=== PATIENT | male | born 1945 | race Asian ===

== ENCOUNTER → 2024-10-26 | Outpatient (BNVA) | payer MEDICARE, MEDICAID, SELFPAY | END | disposition home or self-care (01) | PROVIDERS: PCP Physician Assistant; Referring Provider Physician Assistant; Visit Provider Urology | DX: N40.1 Benign prostatic hyperplasia with lower urinary tract symptoms (principal); N13.8 Other obstructive and reflux uropathy; C61 Malignant neoplasm of prostate; Z87.891 Personal history of nicotine dependence | CPT/HCPCS: 81003; 99212; G0463 ==